=== PATIENT | female | born 1975 | race Hispanic/Latino ===

== ENCOUNTER 2017-12-13 20:05 | Inpatient (IN) | payer SELFPAY ==
[~2017-12-13] VITALS: Ht 152.4 cm; Wt 114.8 kg
[2017-12-13 20:25] LABS: BASOPHILS % (AUTO) 0.4 % (0.0-5.0); EOSINOPHILS % (AUTO) 2.2 % (0.0-8.0); LYMPHOCYTES % (AUTO) 25.1 % (21.0-51.0); MEAN CORPUSCULAR HEMOGLOBIN 23.3 pg (27.0-33.0); MEAN CORPUSCULAR HGB CONC 33.4 g/dL (32.0-36.0); MEAN CORPUSCULAR VOLUME 69.6 fL (79-99); MONOCYTES % (AUTO) 4.7 % (3.0-13.0); NEUTROPHILS % (AUTO) 67.6 % (40.0-77.0); PLATELET COUNT (AUTO) 509 K/uL (130-400); RED BLOOD CELL COUNT(AUTO) 2.91 MIL/uL (4.00-5.50); RED CELL DISTRIBUTION WIDTH 17.4 % (11.0-15.5); WHITE BLOOD COUNT (AUTO) 14.9 K/uL (4.8-10.8)
[2017-12-13 20:35] LABS: HEMATOCRIT 20.3 % (36-48)
[2017-12-13 20:38] LABS: CREATININE 0.9 mg/dL (0.5-1.5); POTASSIUM 3.5 mmol/L (3.5-5.1)
[2017-12-13 20:40] LABS: INR 0.91 (0.85-1.15); PARTIAL THROMBOPLASTIN TIME 24.2 SEC (26.3-35.5); PROTHROMBIN TIME 9.6 SEC (9.6-11.6)
[2017-12-13 20:42] LABS: ALBUMIN 3.1 g/dL (3.5-5.0); BILIRUBIN,TOTAL 0.2 mg/dL (0.2-1.0)
[2017-12-13] MEDS ORDERED: ONDANSETRON HCL MDV 20ML 2 MG/ML VIAL ONE (21:15)
[2017-12-13] MEDS ORDERED: IOPAMIDOL-370 75 ML VIAL IV ONE (21:15)
[2017-12-13] MEDS ORDERED: SODIUM CHLORIDE 0.9% 500ML 500 ML IV ONE (21:16)
[2017-12-13] MEDS ORDERED: MORPHINE SULFATE 4 MG/1ML SYG ONE (21:16)
[2017-12-13 22:14] LABS: APPEARANCE,URINE Cloudy (CLEAR); BILIRUBIN,URINE Negative (NEGATIVE); COLOR,URINE Yellow (YELLOW); GLUCOSE, URINE (UA) Negative (NEGATIVE); KETONES,URINE Negative (NEGATIVE); LEUKOCYTE ESTERASE ,URINE Trace (NEGATIVE); NITRATE,URINE Negative (NEGATIVE); OCCULT BLOOD,URINE Negative (NEGATIVE); PROTEIN,URINE POS 1+ (NEGATIVE)
[2017-12-13 22:21] LABS: BACTERIA,URINE Few /HPF (None Seen); MUCUS,URINE Moderate LPF (None Seen); RBC,URINE 0-1 /HPF (0-1); SQUAMOUS EPITHELIAL CELL,UR Moderate /HPF (0-2); WBC,URINE 0-1 /HPF (0-1)
[2017-12-13 22:22] LABS: AMPHET/METH SCREEN,URINE NEGATIVE (NEGATIVE); BARBITURATE SCREEN, URINE NEGATIVE (NEGATIVE); BENZODIAZEPINES SCREEN,URINE NEGATIVE (NEGATIVE); CANNABINOID SCREEN,URINE NEGATIVE (NEGATIVE); COCAINE SCREEN,URINE NEGATIVE (NEGATIVE); OPIATE SCREEN,URINE POSITIVE (NEGATIVE); PHENCYCLIDINE SCREEN,URINE NEGATIVE (NEGATIVE)
[2017-12-13] MEDS ORDERED: IPRATROPIUM/ALBUTEROL SULFATE 3 ML SOLUTION IH ONE (22:31)
[2017-12-14] VITALS (7 sets, daily range): BP systolic 122–150; BP diastolic 63–77
[2017-12-14] MEDS ORDERED: FURO40TA5 PO (02:32)
[2017-12-14] MEDS ORDERED: ATOR10 PO (02:32)
[2017-12-14] MEDS ORDERED: ATEN1TAB3 PO (02:32)
[2017-12-14] MEDS ORDERED: METF500T6 PO (02:32)
[2017-12-14] MEDS ORDERED: GLYB5TAB8 PO (02:32)
[2017-12-14] MEDS: IPRATROPIUM/ALBUTEROL SULFATE 3 ML SOLUTION IH SCH ×6 (03:18→22:53)
[2017-12-14] MEDS ORDERED: MORPHINE SULFATE 2 MG/ML 1ML SYG IVP PRN (05:00)
[2017-12-14] MEDS ORDERED: ACETAMINOPHEN 325 MG TAB PO PRN (05:00)
[2017-12-14] MEDS ORDERED: KETOROLAC TROMETHAMINE 30MG/ML IM PRN (05:00)
[2017-12-14] MEDS: FAMOTIDINE 20MG TAB 20 MG TAB PO SCH ×2 (07:57→21:17)
[2017-12-14] MEDS: SODIUM CHLORIDE 0.9% 1000ML 1,000 ML IV SCH ×2 (07:58→21:20)
[2017-12-14 09:42] LABS: HEMATOCRIT 23.7 % (36-48); MEAN CORPUSCULAR HEMOGLOBIN 25.1 pg (27.0-33.0); MEAN CORPUSCULAR VOLUME 73.7 fL (79-99); PLATELET COUNT (AUTO) 411 K/uL (130-400); RED BLOOD CELL COUNT(AUTO) 3.22 MIL/uL (4.00-5.50); RED CELL DISTRIBUTION WIDTH 18.2 % (11.0-15.5); WHITE BLOOD COUNT (AUTO) 15.2 K/uL (4.8-10.8)
[2017-12-14 09:52] LABS: CREATININE 0.9 mg/dL (0.5-1.5); POTASSIUM 3.7 mmol/L (3.5-5.1)
[2017-12-14] MEDS ORDERED: KETOROLAC TROMETHAMINE 30MG/ML IV PRN (11:00)
[2017-12-14] MEDS: LEVOFLOXACIN 500 MG/D5W 100 ML 100 ML IV SCH (11:22)
[2017-12-14] MEDS: MORPHINE SULFATE 4 MG/1ML SYG IV PRN ×2 (11:36→16:38)
[2017-12-14] MEDS ORDERED: GLUCAGON 1MG KIT 1 MG ML IM PRN (20:30)
[2017-12-14] MEDS ORDERED: DEXTROSE 50%-WATER 50 ML DISP.SYRIN IV PRN (20:30)
[2017-12-14] MEDS: INSULIN HUMULIN R 100 UNIT/ML 3ML SQ SCH (21:21)
[2017-12-15] MEDS: IPRATROPIUM/ALBUTEROL SULFATE 3 ML SOLUTION IH SCH ×6 (02:12→21:51)
[2017-12-15] MEDS: MORPHINE SULFATE 4 MG/1ML SYG IV PRN (02:29)
[2017-12-15 04:00] VITALS: BP 149/80
[2017-12-15 05:11] LABS: HEMATOCRIT 22.4 % (36-48); MEAN CORPUSCULAR HGB CONC 32.8 g/dL (32.0-36.0); MEAN CORPUSCULAR VOLUME 73.3 fL (79-99); PLATELET COUNT (AUTO) 362 K/uL (130-400); RED BLOOD CELL COUNT(AUTO) 3.06 MIL/uL (4.00-5.50); RED CELL DISTRIBUTION WIDTH 18.5 % (11.0-15.5); WHITE BLOOD COUNT (AUTO) 11.1 K/uL (4.8-10.8)
[2017-12-15 05:22] LABS: CREATININE 0.8 mg/dL (0.5-1.5); MAGNESIUM 1.6 mg/dL (1.80-2.40); POTASSIUM 3.3 mmol/L (3.5-5.1)
[2017-12-15 05:24] LABS: HEMOGLOBIN A1C 10.5 % (4.0-6.0)
[2017-12-15] MEDS: INSULIN HUMULIN R 100 UNIT/ML 3ML SQ SCH ×4 (05:39→21:56)
[2017-12-15 08:00] VITALS: BP 159/75
[2017-12-15] MEDS: FAMOTIDINE 20MG TAB 20 MG TAB PO SCH ×2 (08:54→21:57)
[2017-12-15] MEDS: LEVOFLOXACIN 500 MG/D5W 100 ML 100 ML IV SCH (08:55)
[2017-12-15] MEDS ORDERED: POTASSIUM CHLORIDE 10% ELIXIR 20 MEQ/15 ML UDCUP PO PRN (09:00)
[2017-12-15] MEDS ORDERED: LIDOCAINE HCL-MPF 1% 2ML VIAL IVP PRN (09:00)
[2017-12-15] MEDS ORDERED: POTASSIUM CHLORIDE 20MEQ/100ML 100 ML IV PRN (09:00)
[2017-12-15] MEDS ORDERED: MAGNESIUM 2GM PREMIX 50ML 50 ML IV SCH (09:00)
[2017-12-15 11:49] VITALS: BP 149/73
[2017-12-15] MEDS: SODIUM CHLORIDE 0.9% 1000ML 1,000 ML IV SCH (11:54)
[2017-12-15 17:00] VITALS: BP 146/78
[2017-12-15] MEDS: METFORMIN HCL 500 MG TABLET PO SCH (17:23)
[2017-12-15] MEDS: POTASSIUM CHLORIDE 20 MEQ ERTAB PO PRN ×2 (18:51→21:57)
[2017-12-15 20:00] VITALS: BP 169/90
[2017-12-15] MEDS: INSULIN GLARGINE 100 UNITS/ML 10 ML VIAL SQ SCH (21:57)
[2017-12-16] VITALS (20 sets, daily range): BP systolic 129–154; BP diastolic 58–80
[2017-12-16] MEDS: SODIUM CHLORIDE 0.9% 1000ML 1,000 ML IV SCH ×2 (00:05→12:35)
[2017-12-16] MEDS: POTASSIUM CHLORIDE 20 MEQ ERTAB PO PRN (00:05)
[2017-12-16] MEDS: IPRATROPIUM/ALBUTEROL SULFATE 3 ML SOLUTION IH SCH ×6 (02:33→22:29)
[2017-12-16 05:34] LABS: HEMATOCRIT 25.4 % (36-48); MEAN CORPUSCULAR HEMOGLOBIN 23.7 pg (27.0-33.0); MEAN CORPUSCULAR HGB CONC 32.2 g/dL (32.0-36.0); MEAN CORPUSCULAR VOLUME 73.6 fL (79-99); PLATELET COUNT (AUTO) 449 K/uL (130-400); RED BLOOD CELL COUNT(AUTO) 3.45 MIL/uL (4.00-5.50); RED CELL DISTRIBUTION WIDTH 18.7 % (11.0-15.5); WHITE BLOOD COUNT (AUTO) 10.5 K/uL (4.8-10.8)
[2017-12-16 05:44] LABS: INR 0.9 (0.85-1.15); PARTIAL THROMBOPLASTIN TIME 24.9 SEC (26.3-35.5); PROTHROMBIN TIME 9.5 SEC (9.6-11.6)
[2017-12-16 05:45] LABS: CREATININE 0.7 mg/dL (0.5-1.5); MAGNESIUM 2.2 mg/dL (1.80-2.40); POTASSIUM 3.8 mmol/L (3.5-5.1)
[2017-12-16] MEDS: INSULIN HUMULIN R 100 UNIT/ML 3ML SQ SCH ×4 (07:30→21:22)
[2017-12-16] MEDS: METFORMIN HCL 500 MG TABLET PO SCH ×2 (08:00→17:00)
[2017-12-16] MEDS: HYDROCHLOROTHIAZIDE 25 MG TABLET PO SCH (08:55)
[2017-12-16] MEDS: FAMOTIDINE 20MG TAB 20 MG TAB PO SCH ×2 (08:55→21:22)
[2017-12-16] MEDS: LEVOFLOXACIN 500 MG/D5W 100 ML 100 ML IV SCH (10:09)
[2017-12-16] MEDS ORDERED: GLYCOPYRROLATE 0.2 MG/ML 5 ML VIAL ONE (12:06)
[2017-12-16] MEDS ORDERED: LIDOCAINE PF 2% 5ML ABBOJECT ONE (12:06)
[2017-12-16] MEDS ORDERED: NEOSTIGMINE 5MG/5ML SYR IV ONE (12:06)
[2017-12-16] MEDS ORDERED: DEXAMETHASONE SOD PHOSPHATE 10MG/ML 1ML VIAL ONE (12:06)
[2017-12-16] MEDS ORDERED: PROPOFOL 10 MG/ML 20ML VIAL IV ONE ×2 (12:07→13:36)
[2017-12-16] MEDS ORDERED: MIDAZOLAM HCL 1 MG/ML 2ML VIAL ONE (12:07)
[2017-12-16] MEDS ORDERED: FENTANYL CITRATE PF 50 MCG/1 ML 2ML VIAL ONE (12:07)
[2017-12-16] MEDS ORDERED: ROPIVACAINE 0.5% 5MG/ML 30ML IJ ONE (12:17)
[2017-12-16] MEDS ORDERED: CALDOLOR 800MG+NS 250ML 250 ML IV ONE (12:17)
[2017-12-16] MEDS ORDERED: FENTANYL CITRATE PF 50 MCG/1 ML 5ML AMP IV ONE (13:35)
[2017-12-16] MEDS ORDERED: ROCURONIUM BROMIDE 10MG/1ML 5ML VL ONE (14:22)
[2017-12-16] MEDS ORDERED: METHYLENE BLUE 10 MG/ML AMP IJ ONE (14:24)
[2017-12-16] MEDS ORDERED: PROMETHAZINE HCL 25 MG/ML 1ML AMPULE IM PRN (17:00)
[2017-12-16] MEDS ORDERED: BISACODYL 10 MG SUPP.RECT RC PRN (17:00)
[2017-12-16] MEDS ORDERED: DOCUSATE SODIUM 100 MG CAP PO PRN (17:00)
[2017-12-16] MEDS ORDERED: MEPERIDINE-PF 25 MG/ML SYG ONE (17:11)
[2017-12-16] MEDS ORDERED: MORPHINE-NS 50 MG/50 ML 50 ML IV PRN (18:30)
[2017-12-16] MEDS ORDERED: SODIUM CHLORIDE 0.9% 1000ML 1,000 ML IV PRN (18:30)
[2017-12-16] MEDS ORDERED: NALOXONE HCL 0.4 MG/1 ML ML IVP PRN (18:30)
[2017-12-16] MEDS: MORPHINE SULFATE 4 MG/1ML SYG IV PRN ×2 (18:42→22:36)
[2017-12-16] MEDS: INSULIN GLARGINE 100 UNITS/ML 10 ML VIAL SQ SCH (21:21)
[2017-12-16] MEDS ORDERED: GUAIFENESIN-DM 200/20 MG 10 ML PO PRN (23:30)
[2017-12-17] VITALS (7 sets, daily range): BP systolic 114–158; BP diastolic 64–98
[2017-12-17] MEDS: IPRATROPIUM/ALBUTEROL SULFATE 3 ML SOLUTION IH SCH ×6 (01:43→22:02)
[2017-12-17] MEDS: MORPHINE SULFATE 4 MG/1ML SYG IV PRN ×3 (04:47→20:34)
[2017-12-17 06:19] LABS: HEMATOCRIT 28.8 % (36-48); MEAN CORPUSCULAR HEMOGLOBIN 24.3 pg (27.0-33.0); MEAN CORPUSCULAR HGB CONC 32.2 g/dL (32.0-36.0); MEAN CORPUSCULAR VOLUME 75.6 fL (79-99); PLATELET COUNT (AUTO) 398 K/uL (130-400); RED BLOOD CELL COUNT(AUTO) 3.81 MIL/uL (4.00-5.50); RED CELL DISTRIBUTION WIDTH 18.8 % (11.0-15.5); WHITE BLOOD COUNT (AUTO) 13.1 K/uL (4.8-10.8)
[2017-12-17] MEDS: INSULIN HUMULIN R 100 UNIT/ML 3ML SQ SCH ×4 (06:26→20:39)
[2017-12-17 06:39] LABS: CREATININE 0.8 mg/dL (0.5-1.5); POTASSIUM 4.5 mmol/L (3.5-5.1)
[2017-12-17] MEDS: IBUPROFEN 800 MG TAB PO SCH ×2 (08:00→16:14)
[2017-12-17] MEDS ORDERED: DOCUSATE SODIUM 100 MG CAP PO PRN (08:00)
[2017-12-17] MEDS ORDERED: ACETAMINOPHEN-CODEINE 300/30MG TAB PO PRN (08:00)
[2017-12-17] MEDS: SODIUM CHLORIDE 0.9% 1000ML 1,000 ML IV SCH (08:24)
[2017-12-17] MEDS: METFORMIN HCL 500 MG TABLET PO SCH ×2 (10:22→16:59)
[2017-12-17] MEDS: LEVOFLOXACIN 500 MG/D5W 100 ML 100 ML IV SCH (10:22)
[2017-12-17] MEDS: HYDROCHLOROTHIAZIDE 25 MG TABLET PO SCH (10:22)
[2017-12-17] MEDS: FAMOTIDINE 20MG TAB 20 MG TAB PO SCH ×2 (10:22→20:33)
[2017-12-17] MEDS ORDERED: IBUPROFEN 800 MG TAB PO SCH (17:00)
[2017-12-17] MEDS: INSULIN GLARGINE 100 UNITS/ML 10 ML VIAL SQ SCH (20:39)
[2017-12-17] MEDS ORDERED: FUROSEMIDE 10 MG/ML 2ML VIAL IV SCH (23:00)
[2017-12-18] MEDS: IPRATROPIUM/ALBUTEROL SULFATE 3 ML SOLUTION IH SCH ×5 (01:53→18:00)
[2017-12-18] MEDS: IBUPROFEN 800 MG TAB PO SCH ×3 (01:55→15:54)
[2017-12-18 04:00] VITALS: BP 154/82
[2017-12-18 06:04] LABS: CREATININE 0.7 mg/dL (0.5-1.5); POTASSIUM 3.6 mmol/L (3.5-5.1)
[2017-12-18 06:05] LABS: HEMATOCRIT 30.2 % (36-48); MEAN CORPUSCULAR HEMOGLOBIN 25.3 pg (27.0-33.0); MEAN CORPUSCULAR HGB CONC 33.6 g/dL (32.0-36.0); MEAN CORPUSCULAR VOLUME 75.4 fL (79-99); PLATELET COUNT (AUTO) 444 K/uL (130-400); RED BLOOD CELL COUNT(AUTO) 4.01 MIL/uL (4.00-5.50); RED CELL DISTRIBUTION WIDTH 19.3 % (11.0-15.5); WHITE BLOOD COUNT (AUTO) 12.9 K/uL (4.8-10.8)
[2017-12-18] MEDS: INSULIN HUMULIN R 100 UNIT/ML 3ML SQ SCH ×3 (06:11→16:30)
[2017-12-18 06:20] LABS: % IRON SATURATION 4.1 % (22-44)
[2017-12-18] MEDS: FAMOTIDINE 20MG TAB 20 MG TAB PO SCH (08:47)
[2017-12-18] MEDS: METFORMIN HCL 500 MG TABLET PO SCH ×2 (08:47→18:19)
[2017-12-18] MEDS: HYDROCHLOROTHIAZIDE 25 MG TABLET PO SCH (08:49)
[2017-12-18 09:32] VITALS: BP 154/78
[2017-12-18] MEDS ORDERED: FERROUS SULFATE 325 MG TABLET.DR PO SCH (10:45)
[2017-12-18] MEDS: SODIUM CHLORIDE 0.9% 1000ML 1,000 ML IV SCH (11:04)
[2017-12-18] MEDS: LEVOFLOXACIN 500 MG/D5W 100 ML 100 ML IV SCH (11:11)
[2017-12-18 12:12] VITALS: BP 159/78
[2017-12-18 15:51] VITALS: BP 132/66
[2017-12-18] MEDS ORDERED: INSLAN SQ (16:28)
[2017-12-18] MEDS ORDERED: FERR324T4 PO (16:28)
[2017-12-18] MEDS ORDERED: IBUP-2077 PO (16:28)
[2017-12-18] MEDS ORDERED: LEVO250T2 PO (16:28)
[2017-12-18] MEDS ORDERED: METF500T PO (16:28)
[2017-12-18] MEDS ORDERED: ALBU8.5H8 IH (16:28)
[2017-12-18] MEDS ORDERED: DOCU-275 PO (16:28)
[2017-12-19] MEDS ORDERED: DOCUSATE SODIUM 100 MG CAP PO SCH (09:00)
== END 2017-12-18 18:30 | disposition home or self-care (01) | DRG 742 ==
LOC: EDH 20:05 → 4CH 20:06 → OBSVTOIN 20:06
PROVIDERS: ADMIT Internal Medicine Nephrology; ATTEND Internal Medicine Nephrology
PROC: 0UT70ZZ Resection of Bilateral Fallopian Tubes, Open Approach (ICD-10-PCS; 2017-12-16)
PROC: 30233N1 Transfusion of Nonautologous Red Blood Cells into Peripheral Vein, Percutaneous Approach (ICD-10-PCS; 2017-12-16)
PROC: 0UT20ZZ Resection of Bilateral Ovaries, Open Approach (ICD-10-PCS; principal; 2017-12-16 13:40)
PROC: 0UT90ZZ Resection of Uterus, Open Approach (ICD-10-PCS; 2017-12-16 13:40)
DX: D25.9 Leiomyoma of uterus, unspecified (principal); Z68.42 Body mass index [BMI] 45.0-49.9, adult; E66.01 Morbid (severe) obesity due to excess calories; D64.9 Anemia, unspecified; E11.9 Type 2 diabetes mellitus without complications; I10 Essential (primary) hypertension; D50.9 Iron deficiency anemia, unspecified; J20.9 Acute bronchitis, unspecified
CPT/HCPCS: 36415; 71045; 74177; 80048; 80053; 80305; 81001; 82948; 83036; 83540; 83550; 83690; 83735; 83880; 85025; 85027; 85610; 85730; 86850; 86900; 86901; 86922; 87633; 88307; 93005; 94640; 94664; A4344; J1100; J1741; J1815; J1885; J1940; J1956; J2001; J2175; J2250; J2270; J2704; J2710; J2795; J3010; J3475; J3490; J7030; J7040; P9016; Q9967; Q9968